=== PATIENT | female | born 1955 | race American Indian/Alaskan Native ===

== ENCOUNTER 2018-11-13 23:05 | Emergency (ER) | payer OTHER ==
[2018-11-13 23:25] VITALS: BP 139/63
[2018-11-14 01:03] LABS: RBC,Urine < 1.0 /HPF (0.0-6.0); WBC,Urine < 1.0 /HPF (0.0-6.0)
[2018-11-14 01:15] LABS: Bilirubin,Urine NEG (Negative); Blood,Urine NEG (Negative); Color,Urine Amber (Yellow); Protein,Urine <15 mg/dL mg/dL (Negative)
--- NOTE | 2018-11-14 03:04 | Emergency Department Report ---
ED Female HPI - General Chief complaint: Urogenital-Female Stated complaint: POSS UTI/DEHYDRATION Time Seen by Provider: 11/14/18 02:31 Source: patient Mode of arrival: Ambulatory Limitations: No Limitations - History of Present Illness Initial comments: This is a 65-year-old female nontoxic, well nourished in appearance, no acute signs of distress presents to the ED with c/o of dysuria, polyuria, and urinary frequency x2 days. Patient denies any vaginal discharge, bleeding, ulcers or lesions. Patient denies any back pain. Patient denies any pelvic or abdominal pain. Patient denies any nausea, vomiting, chest pain, shortness of breathe, fever, chills, headache, back pain, numbness, tingling, stiff neck. Patient denies any other urinary symptoms. Patient denies any allergies. Patient also requested for Metformin 500 mg BID refill due to just finished her dose. MD Complaint: dysuria -: days(s) (2) Radiation: non-radiating Severity: mild Severity scale (0 -10): 3 Consistency: constant Improves with: none Worsens with: urination Associated Symptoms: dysuria. denies: vaginal discharge, vaginal bleeding, abdominal pain, nausea/vomiting, fever/chills, headaches, loss of appetite, hematuria, rash, seizure, shortness of breath, syncope, weakness - Related Data Home Medications Medication Instructions Recorded Confirmed Last Taken Lisinopril [Zestril] 10 mg PO DAILY 01/27/18 01/27/18 01/27/18 Previous Rx's Medication Instructions Recorded Last Taken Type Azithromycin [Zithromax Z-CARLEE] 250 mg PO DAILY #6 tablet 01/27/18 Unknown Rx Benzonatate [Tessalon Perle] 100 mg PO Q8H PRN #20 capsule 01/27/18 Unknown Rx Prednisone [predniSONE 10 mg 10 mg PO .TAPER #1 tab.ds.pk 01/27/18 Unknown Rx (6-Day Pack, 21 Tabs)] Sulfamethoxazole/Trimethoprim 1 each PO BID #14 tablet 11/14/18 Unknown Rx [Bactrim DS TAB] metFORMIN [Glucophage] 500 mg PO BID #60 tablet 11/14/18 Unknown Rx Allergies Allergy/AdvReac Type Severity Reaction Status Date / Time No Known Allergies Allergy Unverified 01/27/18 13:16 ED Review of Systems ROS: Stated complaint: POSS UTI/DEHYDRATION Other details as noted in HPI Constitutional: denies: chills, fever Eyes: denies: eye pain, eye discharge, vision change ENT: denies: ear pain, throat pain Respiratory: denies: cough, shortness of breath, wheezing Cardiovascular: denies: chest pain, palpitations Endocrine: no symptoms reported Gastrointestinal: denies: abdominal pain, nausea, diarrhea Genitourinary: urgency, dysuria, frequency. denies: hematuria, discharge Musculoskeletal: denies: back pain, joint swelling, arthralgia Skin: denies: rash, lesions Neurological: denies: headache, weakness, paresthesias Psychiatric: denies: anxiety, depression Hematological/Lymphatic: denies: easy bleeding, easy bruising ED Past Medical Hx - Past Medical History Previous Medical History?: Yes Hx Hypertension: Yes - Surgical History Past Surgical History?: No - Social History Smoking Status: Never Smoker Substance Use Type: None - Medications Home Medications: Home Medications Medication Instructions Recorded Confirmed Last Taken Type Azithromycin [Zithromax Z-CARLEE] 250 mg PO DAILY #6 tablet 01/27/18 Unknown Rx Benzonatate [Tessalon Perle] 100 mg PO Q8H PRN #20 capsule 01/27/18 Unknown Rx Lisinopril [Zestril] 10 mg PO DAILY 01/27/18 01/27/18 01/27/18 History Prednisone [predniSONE 10 mg 10 mg PO .TAPER #1 tab.ds.pk 01/27/18 Unknown Rx (6-Day Pack, 21 Tabs)] Sulfamethoxazole/Trimethoprim 1 each PO BID #14 tablet 11/14/18 Unknown Rx [Bactrim DS TAB] metFORMIN [Glucophage] 500 mg PO BID #60 tablet 11/14/18 Unknown Rx ED Physical Exam - General Limitations: No Limitations General appearance: alert, in no apparent distress - Head Head exam: Present: atraumatic, normocephalic - GI/Abdominal GI/Abdominal exam: Present: soft, normal bowel sounds. Absent: distended, tenderness, guarding, rebound, rigid, diminished bowel sounds - Extremities Exam Extremities exam: Present: normal inspection, full ROM - Back Exam Back exam: Present: normal inspection, full ROM. Absent: tenderness, CVA tenderness (R), CVA tenderness (L), muscle spasm, paraspinal tenderness, v ertebral tenderness, rash noted - Neurological Exam Neurological exam: Present: alert, oriented X3, normal gait - Psychiatric Psychiatric exam: Present: normal affect, normal mood - Skin Skin exam: Present: warm, dry, intact, normal color. Absent: rash ED Course Vital Signs 11/13/18 23:11 Temperature 98.7 F Pulse Rate 68 Respiratory 16 Rate Blood Pressure 139/63 O2 Sat by Pulse 98 Oximetry - Reevaluation(s) Reevaluation #1: 11/14/18 03:01 Patient is speaking in full sentences with no signs of distress noted. ED Medical Decision Making - Medical Decision Making This is a 62-year-old female that presents with UTI. Patient is stable and was examined by me. UA obtained. Patient does not have any CVA tenderness. No signs or symptoms of pyelonephritis. Patient is discharged with Bactrim. Patient was instructed to Follow-up with a primary care doctor in 3-5 days or if symptoms worsen and continue return to emergency room as soon as possible. At time of discharge, the patient does not seem toxic or ill in appearance. No acute signs of distress noted. Patient agrees to discharge treatment plan of care. No further questions noted by the patient. Critical care attestation.: If time is entered above; I have spent that time in minutes in the direct care of this critically ill patient, excluding procedure time. ED Disposition Clinical Impression: UTI (urinary tract infection) Qualifiers: Urinary tract infection type: acute cystitis Hematuria presence: without hematuria Qualified Code(s): N30.00 - Acute cystitis without hematuria Disposition: - TO HOME OR SELFCARE Is pt being admited?: No Does the pt Need Aspirin: No Condition: Stable Instructions: Urinary Tract Infection in Women (ED) Additional Instructions: Follow-up with a primary care doctor in 3-5 days or if symptoms worsen and continue return to emergency room as soon as possible. Prescriptions: Sulfamethoxazole/Trimethoprim [Bactrim DS TAB] 1 each PO BID #14 tablet metFORMIN [Glucophage] 500 mg PO BID #60 tablet Referrals: SHAMEKA KIRBY MD [Primary Care Provider] - 3-5 Days PRIMARY [facility]ARE, [Referring] - 3-5 Days CHOLO CASTRO MD [Staff Physician] - 3-5 Days [facility] [Outside] - 3-5 Days [facility] [Outside] - 3-5 Days Forms: Work/School Release Form(ED)
== END 2018-11-14 03:10 | disposition home or self-care (01) ==
LOC: ED 23:05
DX: N39.0 Urinary tract infection, site not specified (principal); I10 Essential (primary) hypertension
CPT/HCPCS: 81001; 87086

== ENCOUNTER 2019-08-07 08:28 | Emergency (ER) | payer MEDICARE ==
--- NOTE | 2019-08-07 09:08 | Emergency Department Report ---
ED Female HPI - General Chief complaint: Urogenital-Female Stated complaint: URINARY PROBLEMS Time Seen by Provider: 08/07/19 08:49 Source: patient Mode of arrival: Ambulatory Limitations: No Limitations - History of Present Illness Initial comments: 63 yr old female with hx HTN and DM presents to ED c/o urinary frequency and dysuria. Onset 3 week ago. She states she f/u with her PCP about the symptoms. At the time they checked her urine and told her it was nl. But she states her symptoms have continued. SHe denies any back pain, or low abd pain. SHe is s/p partial hyserectomy. She denies any vag symptoms. She denies any fever, chills, n/v or any other symptoms at this time. MD Complaint: dysuria -: Gradual (3 weeks ago) - Related Data Home Medications Medication Instructions Recorded Confirmed Last Taken Lisinopril [Zestril] 10 mg PO DAILY 01/27/18 01/27/18 01/27/18 Previous Rx's Medication Instructions Recorded Last Taken Type Azithromycin [Zithromax Z-CARLEE] 250 mg PO DAILY #6 tablet 01/27/18 Unknown Rx Benzonatate [Tessalon Perle] 100 mg PO Q8H PRN #20 capsule 01/27/18 Unknown Rx Prednisone [predniSONE 10 mg 10 mg PO .TAPER #1 tab.ds.pk 01/27/18 Unknown Rx (6-Day Pack, 21 Tabs)] metFORMIN [Glucophage] 500 mg PO BID #60 tablet 11/14/18 Unknown Rx Phenazopyridine [Pyridium] 200 mg PO TID PRN #9 tab 08/07/19 Unknown Rx Sulfamethoxazole/Trimethoprim 1 each PO BID #14 tablet 08/07/19 Unknown Rx [Bactrim DS TAB] Allergies Allergy/AdvReac Type Severity Reaction Status Date / Time No Known Allergies Allergy Unverified 01/27/18 13:16 ED Review of Systems ROS: Stated complaint: URINARY PROBLEMS Other details as noted in HPI Comment: All other systems reviewed and negative Genitourinary: dysuria, frequency. denies: urgency, hematuria, discharge, abnormal menses, dyspareunia ED Past Medical Hx - Past Medical History Previous Medical History?: Yes Hx Hypertension: Yes Hx Diabetes: Yes - Surgical History Past Surgical History?: Yes Additional Surgical History: hysterectomy - Social History Smoking Status: Never Smoker Substance Use Type: None - Medications Home Medications: Home Medications Medication Instructions Recorded Confirmed Last Taken Type Azithromycin [Zithromax Z-CARLEE] 250 mg PO DAILY #6 tablet 01/27/18 Unknown Rx Benzonatate [Tessalon Perle] 100 mg PO Q8H PRN #20 capsule 01/27/18 Unknown Rx Lisinopril [Zestril] 10 mg PO DAILY 01/27/18 01/27/18 01/27/18 History Prednisone [predniSONE 10 mg 10 mg PO .TAPER #1 tab.ds.pk 01/27/18 Unknown Rx (6-Day Pack, 21 Tabs)] metFORMIN [Glucophage] 500 mg PO BID #60 tablet 11/14/18 Unknown Rx Phenazopyridine [Pyridium] 200 mg PO TID PRN #9 tab 08/07/19 Unknown Rx Sulfamethoxazole/Trimethoprim 1 each PO BID #14 tablet 08/07/19 Unknown Rx [Bactrim DS TAB] ED Physical Exam - General Limitations: No Limitations General appearance: alert, in no apparent distress - Head Head exam: Present: atraumatic, normocephalic - Eye Eye exam: Present: normal appearance - Respiratory Respiratory exam: Absent: respiratory distress - Cardiovascular Cardiovascular Exam: Present: regular rate - GI/Abdominal GI/Abdominal exam: Present: soft. Absent: distended, tenderness - Back Exam Back exam: Present: normal inspection, full ROM. Absent: CVA tenderness (R), CVA tenderness (L) - Neurological Exam Neurological exam: Present: alert, oriented X3 - Psychiatric Psychiatric exam: Present: normal affect, normal mood - Skin Skin exam: Present: intact ED Course Vital Signs 08/07/19 08/07/19 08:29 08:46 Temperature 98.4 F Pulse Rate 90 Respiratory 20 20 Rate Blood Pressure 144/74 O2 Sat by Pulse 96 96 Oximetry Critical care attestation.: If time is entered above; I have spent that time in minutes in the direct care of this critically ill patient, excluding procedure time. ED Disposition Clinical Impression: UTI (urinary tract infection) Disposition: DC-01 TO HOME OR SELFCARE Is pt being admited?: No Does the pt Need Aspirin: No Condition: Stable Instructions: Urinary Tract Infection in Women (ED) Additional Instructions: I recommend you take and complete all antibiotics. Continue to drink lots of water, I recommend close f/u with PCP, if worse return to ED. Prescriptions: Sulfamethoxazole/Trimethoprim [Bactrim DS TAB] 1 each PO BID #14 tablet Phenazopyridine [Pyridium] 200 mg PO TID PRN #9 tab PRN Reason: DYSURIA Time of Disposition: 10:11
[2019-08-07 09:33] LABS: Bilirubin,Urine NEG (Negative); Blood,Urine NEG (Negative); Color,Urine Amber (Yellow); Protein,Urine <15 mg/dL mg/dL (Negative); RBC,Urine < 1.0 /HPF (0.0-6.0)
[2019-08-07 09:38] LABS: WBC,Urine < 1.0 /HPF (0.0-6.0)
[2019-08-07 10:25] VITALS: BP 148/74
== END 2019-08-07 10:24 | disposition home or self-care (01) ==
LOC: ED 08:28
DX: N39.0 Urinary tract infection, site not specified (principal); I10 Essential (primary) hypertension; E11.9 Type 2 diabetes mellitus without complications; Z79.899 Other long term (current) drug therapy
CPT/HCPCS: 81001; 82962; 87086; 99283

== ENCOUNTER 2020-04-20 02:52 | Emergency (ER) | payer MEDICARE ==
[2020-04-20 03:13] VITALS: BP 173/85
--- NOTE | 2020-04-20 03:24 | Emergency Department Report ---
ED Female HPI - General Chief complaint: Abdominal Pain Stated complaint: PAINFUL URINATION Time Seen by Provider: 04/20/20 03:15 Source: patient Mode of arrival: Ambulatory Limitations: No Limitations - History of Present Illness Initial comments: 64-year-old female with a past medical history of diabetes, hypertension and hyperlipidemia presents to the ER with complaint of a 1 week history of dysuria, urinary frequency, mild lower back pain and mild lower abdominal pain. Patient states that she saw her primary care doctor last Sunday. She states that they checked her urine but did not give her diagnosis but started her on an antibiotic. She thinks antibiotic was Bactrim but is not absolutely sure. She states that she has been taking antibiotics without much relief of her symptoms. She denies any hematuria, she denies any nausea, vomiting, fever or chills. MD Complaint: dysuria -: Gradual, week(s) (1) - Related Data Home Medications Medication Instructions Recorded Confirmed Last Taken Lisinopril [Zestril] 10 mg PO DAILY 01/27/18 01/27/18 01/27/18 Previous Rx's Medication Instructions Recorded Last Taken Type Azithromycin [Zithromax Z-CARLEE] 250 mg PO DAILY #6 tablet 01/27/18 Unknown Rx Benzonatate [Tessalon Perle] 100 mg PO Q8H PRN #20 capsule 01/27/18 Unknown Rx Prednisone [predniSONE 10 mg 10 mg PO .TAPER #1 tab.ds.pk 01/27/18 Unknown Rx (6-Day Pack, 21 Tabs)] metFORMIN [Glucophage] 500 mg PO BID #60 tablet 11/14/18 Unknown Rx Sulfamethoxazole/Trimethoprim 1 each PO BID #14 tablet 08/07/19 Unknown Rx [Bactrim DS TAB] Phenazopyridine [Pyridium] 200 mg PO TID PRN #9 tab 04/20/20 Unknown Rx Allergies Allergy/AdvReac Type Severity Reaction Status Date / Time No Known Allergies Allergy Unverified 01/27/18 13:16 ED Review of Systems ROS: Stated complaint: PAINFUL URINATION Other details as noted in HPI Comment: All other systems reviewed and negative Constitutional: denies: chills, fever ENT: denies: ear pain, throat pain Respiratory: denies: cough, shortness of breath, wheezing Cardiovascular: denies: chest pain, palpitations Gastrointestinal: abdominal pain. denies: nausea, diarrhea Genitourinary: dysuria, frequency. denies: urgency, hematuria, discharge, abnormal menses, dyspareunia Musculoskeletal: back pain Skin: denies: rash, lesions Neurological: denies: headache, weakness, paresthesias Psychiatric: denies: anxiety, depression Hematological/Lymphatic: denies: easy bleeding, easy bruising ED Past Medical Hx - Past Medical History Previous Medical History?: Yes Hx Hypertension: Yes Hx Diabetes: Yes - Surgical History Past Surgical History?: Yes Additional Surgical History: hysterectomy - Social History Smoking Status: Never Smoker Substance Use Type: None - Medications Home Medications: Home Medications Medication Instructions Recorded Confirmed Last Taken Type Azithromycin [Zithromax Z-CARLEE] 250 mg PO DAILY #6 tablet 01/27/18 Unknown Rx Benzonatate [Tessalon Perle] 100 mg PO Q8H PRN #20 capsule 01/27/18 Unknown Rx Lisinopril [Zestril] 10 mg PO DAILY 01/27/18 01/27/18 01/27/18 History Prednisone [predniSONE 10 mg 10 mg PO .TAPER #1 tab.ds.pk 01/27/18 Unknown Rx (6-Day Pack, 21 Tabs)] metFORMIN [Glucophage] 500 mg PO BID #60 tablet 11/14/18 Unknown Rx Sulfamethoxazole/Trimethoprim 1 each PO BID #14 tablet 08/07/19 Unknown Rx [Bactrim DS TAB] Phenazopyridine [Pyridium] 200 mg PO TID PRN #9 tab 04/20/20 Unknown Rx ED Physical Exam - General Limitations: No Limitations General appearance: alert, in no apparent distress - Head Head exam: Present: atraumatic, normocephalic, normal inspection - Eye Eye exam: Present: normal appearance, PERRL, EOMI Pupils: Present: normal accommodation - ENT ENT exam: Present: normal exam, mucous membranes moist - Respiratory Respiratory exam: Present: normal lung sounds bilaterally - Cardiovascular Cardiovascular Exam: Present: regular rate, normal rhythm, normal heart sounds - GI/Abdominal GI/Abdominal exam: Present: soft, distended. Absent: tenderness, guarding - Back Exam Back exam: Present: normal inspection, full ROM. Absent: CVA tenderness (R), CVA tenderness (L) - Neurological Exam Neurological exam: Present: alert, oriented X3, CN II-XII intact, normal gait - Psychiatric Psychiatric exam: Present: normal affect, normal mood - Skin Skin exam: Present: intact ED Course Vital Signs 04/20/20 02:58 Temperature 98.2 F Pulse Rate 77 Respiratory 17 Rate Blood Pressure 173/85 O2 Sat by Pulse 99 Oximetry ED Medical Decision Making - Medical Decision Making 64-year-old female with a past medical history of diabetes, hypertension and hyperlipidemia presents to the ER with complaint of a 1 week history of dysuria, urinary frequency, mild lower back pain and mild lower abdominal pain. Patient states that she saw her primary care doctor last Sunday. She states that they checked her urine but did not give her diagnosis but started her on an antibiotic. She thinks antibiotic was Bactrim but is not absolutely sure. She states that she has been taking antibiotics without much relief of her symptoms. She reports no vaginal symptoms, she denies any hematuria, she denies any nausea, vomiting, fever or chills. 0426: Urinalysis normal. No UTI. Discussed the results with patient. Exact cause of her symptoms at this time unclear, could be related to bladder spasms. Patient is well-appearing, not toxic and is not in any acute pain distress. She has a soft nontender abdomen. She has no CVA tenderness. Her blood pressure is elevated but she has a history of hypertension, no indication for emergent treatment of hypertension at this time. Her remaining vitals are stable. She is neurologically intact with a normal gait in the ER. At this time there is no indication for any additional work-up or imaging. Recommend the patient follow-up with the urologist and her [employer] for further evaluation of her symptoms. Patient expressed understanding of instructions and agree with plan. Patient was stable at time of discharge. Critical care attestation.: If time is entered above; I have spent that time in minutes in the direct care of this critically ill patient, excluding procedure time. ED Disposition Clinical Impression: Dysuria Disposition: DC-01 TO HOME OR SELFCARE Is pt being admited?: No Does the pt Need Aspirin: No Condition: Stable Instructions: Dysuria, Abdominal Pain (ED) Additional Instructions: Take the Pyridium as prescribed. Follow-up with urologist given on discharge instructions this week. Return to the ER if your symptoms changes or worsens in any way. Prescriptions: Phenazopyridine [Pyridium] 200 mg PO TID PRN #9 tab PRN Reason: DYSURIA Referrals: PRIMARY CARE, [Primary Care Provider] - 3-5 Days MANUEL BRUCE MD [Staff Physician] - 3-5 Days Time of Disposition: 04:24
[2020-04-20 03:52] LABS: Bilirubin,Urine NEG (Negative); Blood,Urine NEG (Negative); Color,Urine Straw (Yellow); Protein,Urine <15 mg/dL mg/dL (Negative); RBC,Urine < 1.0 /HPF (0.0-6.0); Urobilinogen,Urine < 2.0 mg/dL (<2.0); WBC,Urine < 1.0 /HPF (0.0-6.0)
== END 2020-04-20 05:10 | disposition home or self-care (01) ==
LOC: ED 02:52
DX: R30.0 Dysuria (principal); I10 Essential (primary) hypertension; E11.9 Type 2 diabetes mellitus without complications; Z79.899 Other long term (current) drug therapy; Z90.710 Acquired absence of both cervix and uterus
CPT/HCPCS: 81001